=== PATIENT | male | born 1995 | race African-American/Black ===

== ENCOUNTER 2018-02-11 18:31 | Emergency (ER) | payer OTHER ==
[2018-02-11] MEDS: PERCOCET 5MG/325MG TAB PO (20:42)
[2018-02-11] MEDS: OXYCODONE/APAP 5MG/325MG(BULK FOR ED) 1 TABLET PO (21:34)
== END 2018-02-11 21:35 | disposition home or self-care (01) ==
LOC: M ED 18:31
DX: S61.211A Laceration without foreign body of left index finger without damage to nail, initial encounter (principal); S67.191A Crushing injury of left index finger, initial encounter; W27.8XXA Contact with other nonpowered hand tool, initial encounter; Y92.59 Other trade areas as the place of occurrence of the external cause; Y99.0 Civilian activity done for income or pay
CPT/HCPCS: 73140

== ENCOUNTER 2020-05-15 17:44 | Emergency (ER) | payer OTHER ==
[~2020-05-15] VITALS: Ht 177.8 cm; Wt 88.5 kg
[2020-05-15 17:45] VITALS: BP 141/87
[2020-05-15] MEDS ORDERED: ZOLO25TA PO (17:50)
[2020-05-15] MEDS ORDERED: AZITHROMYCIN 250MG TABLET PO ONE (18:15)
[2020-05-15] MEDS ORDERED: LIDOCAINE 1% SDV 5ML VIAL DILUENT ONE (18:15)
[2020-05-15] MEDS ORDERED: cefTRIAXone SOD 250MG VIAL (J0696 PER 250MG) IM ONE (18:15)
[2020-05-15 19:53] LABS: CHLAMYDIA DNA AMPLIFICATION POSITIVE (NEGATIVE); GC DNA AMPLIFICATION NEGATIVE (NEGATIVE)
== END 2020-05-15 18:41 | disposition home or self-care (01) ==
LOC: M ED 17:44
DX: Z20.2 Contact with and (suspected) exposure to infections with a predominantly sexual mode of transmission (principal); F17.290 Nicotine dependence, other tobacco product, uncomplicated; Z79.899 Other long term (current) drug therapy
CPT/HCPCS: 87491; 87591; 96372; 99282; J0696

== ENCOUNTER → 2022-03-22 | Outpatient (CLI) | payer OTHER ==
[~2022-03-22] MED LIST: ADDE15CA3 PO; BUPR300T92 PO; PRAZ1CAP PO; ZOLO25TA PO
== END ==
LOC: M LABSMTC 09:41
PROVIDERS: ATTEND Anesthesiology
DX: Z01.812 Encounter for preprocedural laboratory examination (principal); Z20.822 Contact with and (suspected) exposure to COVID-19

== ENCOUNTER 2022-03-27 07:05 | Day surgery (SDC) | payer OTHER ==
[~2022-03-27] VITALS: Ht 177.8 cm; Wt 83.0 kg
[~2022-03-27 07:05] MED LIST changes: +NS 1,000 ML IV ONE
[2022-03-27] MEDS ORDERED: LIDOCAINE 2% 100MG/5ML SDV (FOR ANES.) As Ordered ONE (07:56)
[2022-03-27] MEDS ORDERED: propofoL 200 MG/20 ML VIAL As Ordered ONE ×2 (07:56→08:58)
[2022-03-27] MEDS ORDERED: fentaNYL 100 MCG/2 ML INJECTION As Ordered ONE (08:21)
[2022-03-27 09:45] VITALS: BP 107/67
== END 2022-03-27 09:54 | disposition home or self-care (01) ==
LOC: M OPP 07:05
PROVIDERS: ATTEND Surgery
DX: K62.5 Hemorrhage of anus and rectum (principal); K64.1 Second degree hemorrhoids; F43.10 Post-traumatic stress disorder, unspecified; F41.9 Anxiety disorder, unspecified; F32.A Depression, unspecified; Z87.820 Personal history of traumatic brain injury; Z79.899 Other long term (current) drug therapy
CPT/HCPCS: 45378; 46946; J3010

== ENCOUNTER 2023-06-20 17:26 | Inpatient (IN) | payer OTHER ==
[~2023-06-20] VITALS: Ht 177.8 cm; Wt 84.1 kg
[~2023-06-20 17:26] MED LIST changes: -NS 1,000 ML IV ONE
[2023-06-20 18:33] LABS: HEMATOCRIT 41.3 % (42.0-52.0); HEMOGLOBIN 13.8 g/dl (13.5-17.5); MEAN CORPUSCULAR HGB CONC 33.4 g/dl (32.0-36.5); MEAN CORPUSCULAR VOLUME 89.8 fl (80.0-96.0); PLATELET COUNT, AUTOMATED 235 10^3/uL (150-450); WHITE BLOOD COUNT 6.6 10^3/uL (4.0-10.0)
[2023-06-20 18:55] LABS: BARBITURATES URINE NEGATIVE (NEGATIVE); BENZODIAZEPINES URINE NEGATIVE (NEGATIVE); COCAINE METABOLITE URINE NEGATIVE (NEGATIVE); METHADONE URINE NEGATIVE (NEGATIVE); OPIATES URINE NEGATIVE (NEGATIVE)
[2023-06-20 18:56] LABS: CANNABINOIDS URINE NEGATIVE (NEGATIVE); ETHYL ALCOHOL (ETHANOL) < 0.003 % (0.000-0.010); PHENCYCLIDINE URINE NEGATIVE (NEGATIVE)
[2023-06-20 18:57] LABS: ACETAMINOPHEN LEVEL < 2.0 UG/ML (10.0-20.0)
[2023-06-20 18:58] LABS: ALKALINE PHOSPHATASE 103 U/L (46-116); ALT/SGPT 24 U/L (7.0-40); AST/SGOT 19 U/L (<34); BILIRUBIN,DIRECT 0.2 MG/DL (<0.4); BILIRUBIN,TOTAL 0.6 MG/DL (0.3-1.2); BLOOD UREA NITROGEN 19 MG/DL (9-23); CALCIUM LEVEL 9.2 MG/DL (8.5-10.1); CARBON DIOXIDE LEVEL 25 MMOL/L (20-31); CHLORIDE LEVEL 109 MMOL/L (98-107); CREATININE FOR GFR 1.29 MG/DL (0.70-1.30); GLOMERULAR FILTRATION RATE > 60.0 (>60); GLUCOSE, FASTING 92 MG/DL (60-100); POTASSIUM SERUM 4.3 MMOL/L (3.5-5.1); SALICYLATE LEVEL < 3.0 MG/DL (<30); SODIUM LEVEL 141 MMOL/L (136-145); TOTAL PROTEIN 7.4 G/DL (5.7-8.2)
[2023-06-20 19:00] LABS: AMPHETAMINES LEVEL URINE POSITIVE (NEGATIVE)
[2023-06-20 19:01] LABS: THYROID STIMULATING HORMONE 1.901 uIU/ML (0.55-4.78)
[2023-06-20] MEDS ORDERED: OMEG100011 PO (20:31)
[2023-06-20] MEDS ORDERED: TEMA15CA2 PO (20:31)
[2023-06-20] MEDS ORDERED: BUPR1TAB56 PO (20:31)
[2023-06-20] MEDS ORDERED: VITA100093 PO (20:31)
[2023-06-20] MEDS ORDERED: ADDE20TA PO (20:31)
[2023-06-20] MEDS ORDERED: THERTAB52 PO (20:31)
[2023-06-20] MEDS ORDERED: HOME MED LIST COMPLETE! XX SCH (20:35)
[2023-06-21] MEDS ORDERED: diphenhydrAMINE 25MG CAP PO PRN (01:05)
[2023-06-21] MEDS ORDERED: MAALOX 30 ML SUSP *UDC PO PRN (01:05)
[2023-06-21] MEDS ORDERED: IBUPROFEN 400MG TAB PO PRN (01:05)
[2023-06-21] MEDS ORDERED: ACETAMINOPHEN TAB 650MG DOSE (2X325MG) PO PRN (01:05)
[2023-06-21] MEDS ORDERED: MOM 30ML SUSPENSION UDC PO PRN (01:05)
[2023-06-21] MEDS ORDERED: traZODone 50 MG TAB PO PRN (01:05)
[2023-06-21 02:32] VITALS: BP 137/71; TEMP 97.2; O2SAT 100
[2023-06-21 06:00] VITALS: BP 140/68; TEMP 97.6; O2SAT 100
[2023-06-21] MEDS: buPROPion (WELLBUTRIN SR) 100 MG SR TAB PO SCH (13:16)
[2023-06-21] MEDS: VITAMIN D 1,000 INTERNATIONAL UNITS TABLET PO SCH (13:16)
[2023-06-21] MEDS: OMEGA-3 1000MG CAPSULE PO SCH (13:16)
[2023-06-21 18:00] VITALS: BP 141/79; TEMP 98.2; O2SAT 100
[2023-06-21] MEDS: TEMAZEPAM 15 MG CAP PO PRN (22:47)
[2023-06-22 06:22] VITALS: BP 127/63; TEMP 98.4; O2SAT 100
[2023-06-22] MEDS: VITAMIN D 1,000 INTERNATIONAL UNITS TABLET PO SCH (08:07)
[2023-06-22] MEDS: OMEGA-3 1000MG CAPSULE PO SCH (08:07)
[2023-06-22] MEDS: buPROPion (WELLBUTRIN SR) 100 MG SR TAB PO SCH (08:07)
[2023-06-22 18:00] VITALS: BP 136/82; TEMP 92.2; O2SAT 100
[2023-06-22] MEDS: TEMAZEPAM 15 MG CAP PO PRN (22:51)
[2023-06-23 05:58] VITALS: BP 139/76; TEMP 97.2; O2SAT 100
[2023-06-23] MEDS: VITAMIN D 1,000 INTERNATIONAL UNITS TABLET PO SCH (09:03)
[2023-06-23] MEDS: OMEGA-3 1000MG CAPSULE PO SCH (09:03)
[2023-06-23] MEDS: buPROPion (WELLBUTRIN SR) 100 MG SR TAB PO SCH (09:03)
== END 2023-06-23 14:38 | disposition home or self-care (01) | DRG 881 ==
LOC: M ED 17:26 → M ED INP 06-21 01:01 → M PSY 06-21 02:18
PROVIDERS: ADMIT Student in an Organized Health Care Education/Training Program; ATTEND Student in an Organized Health Care Education/Training Program
DX: F43.21 Adjustment disorder with depressed mood (principal); R45.851 Suicidal ideations; F43.10 Post-traumatic stress disorder, unspecified; Z91.51 Personal history of suicidal behavior; Z87.820 Personal history of traumatic brain injury; Z79.899 Other long term (current) drug therapy; Z20.822 Contact with and (suspected) exposure to COVID-19